=== PATIENT | female | born 1995 | race Caucasian/White ===

== ENCOUNTER 2019-04-10 20:20 | Emergency (ER) | payer BC, OTHER ==
[~2019-04-10] VITALS: Ht 195.6 cm; Wt 82.0 kg
[2019-04-10] MEDS ORDERED: ONDANSETRON 4MG ODT PO ONE (21:15)
[2019-04-10] MEDS ORDERED: KETOROLAC 30MG/ML VIAL IM ONE (21:15)
[2019-04-10 22:05] VITALS: BP 115/78
== END 2019-04-10 22:06 | disposition home or self-care (01) ==
LOC: ER 20:20
DX: R51 Headache (principal); Z88.0 Allergy status to penicillin
CPT/HCPCS: 96372; 99283; J1885; Q0162; Z7610